=== PATIENT | female | born 1990 ===

== ENCOUNTER 2024-09-30 13:47 | Outpatient (CLI) | payer OTHER | END 2024-09-30 13:48 | disposition home or self-care (01) | LOC: PRENATAL 13:47 | PROVIDERS: ATTEND Obstetrics & Gynecology Maternal & Fetal Medicine | DX: O44.00 Complete placenta previa NOS or without hemorrhage, unspecified trimester (principal); Z3A.24 24 weeks gestation of pregnancy ==

== ENCOUNTER 2024-12-16 11:01 | Outpatient (CLI) | payer OTHER | END 2024-12-16 11:04 | disposition home or self-care (01) | LOC: PRENATAL 11:01 | PROVIDERS: ATTEND Obstetrics & Gynecology Maternal & Fetal Medicine | DX: O26.849 Uterine size-date discrepancy, unspecified trimester (principal); O36.8199 Decreased fetal movements, unspecified trimester, other fetus; Z3A.36 36 weeks gestation of pregnancy ==

== ENCOUNTER 2025-01-18 08:49 | Inpatient (IN) | payer OTHER ==
[~2025-01-18] VITALS: Ht 154.9 cm; Wt 3.2 kg
[2025-01-18 10:34] VITALS: BP 108/70
[2025-01-18] MEDS ORDERED: OXYTOCIN 20 UNITS/500ML RL PIGGYBAG IV SCH (11:15)
[2025-01-18 11:34] LABS: BASO % 0.2 % (0.1-1.2); EOS # 0.21 (0.04-0.54); EOS % 2.1 % (0.7-7.0); LYMPH # 2.38 (1.18-3.74); LYMPH % 23.4 % (19.3-53.1); MEAN PLATELET VOLUME 10.70 fl (9.4-12.4); MONO # 1.04 (0.24-0.82); MONO % 10.2 % (4.7-12.5); NEUT # 6.45 (1.56-6.13); NEUT % 63.5 % (34.0-71.1); RED CELL DISTRIBUTION WIDTH 14.7 % (11.6-14.4)
[2025-01-18 11:37] LABS: URINE APPEARANCE Clear; URINE BACTERIA 1303.1 uL (0.0-1933); URINE BILIRRUBIN Negative (NEGATIVE); URINE BLOOD Moderate; URINE COLOR Yellow; URINE EPITHELIAL CELLS 32.6 uL (0.0-38.8); URINE GLUCOSE Negative (NEGATIVE); URINE KETONE Negative (NEGATIVE); URINE LEUKOCYTE Moderate; URINE NITRATE Negative; URINE PROTEIN Negative (NEGATIVE); URINE UROBILINOGEN 0.2 E.U./dl; URINE WBC 33.5 uL (0.0-23.2)
[2025-01-18 12:05] LABS: INR 0.95
[2025-01-18 12:15] LABS: URINE CAST 0.00 uL (0.0-1.40); URINE RBC 1.0 uL (0.0-20.8)
[2025-01-18] MEDS ORDERED: PRENATA CHEWAB1 EACH PO (13:15)
[2025-01-18 15:36] VITALS: BP 104/71
[2025-01-18] MEDS ORDERED: ERYTHROMYCIN BASE OPHT 1GM EACH TUBE OP ONE ×2 (17:40→21:57)
[2025-01-18] MEDS ORDERED: LIDOCAINE HCL 1% 10ML VIAL ONE (17:41)
[2025-01-18] MEDS ORDERED: CHLORHEXIDINE GLUCONATE 120 ML BOTTLE TOP ONE ×3 (17:41→23:45)
[2025-01-18] MEDS ORDERED: OXYTOCIN 20 UNITS/1000ML RL PIGGYBAG IV ONE (17:55)
[2025-01-18] MEDS ORDERED: MORPHINE SULFATE 4 MG/ML VIAL IV STA (19:37)
[2025-01-18 20:09] VITALS: BP 108/68
[2025-01-18] MEDS ORDERED: OXYTOCIN 10 UNITS/ML VIAL ONE (21:57)
[2025-01-18] MEDS ORDERED: CEFAZOLIN SODIUM 1,000 MG VIAL ONE (22:40)
[2025-01-18] MEDS ORDERED: KETOROLAC TROMETHAMINE 60 MG VIAL IM STA (23:35)
[2025-01-18] MEDS ORDERED: MORPHINE SULFATE 4 MG/ML CARTRIDGE IV PRN (23:45)
[2025-01-18] MEDS ORDERED: OXYTOCIN 1,000 ML IV SCH (23:45)
[2025-01-18] MEDS ORDERED: RINGERS SOLUTION,LACTATED 1,000 ML IV SCH (23:45)
[2025-01-19] MEDS ORDERED: OXYTOCIN 10 UNITS/ML VIAL ONE (00:15)
[2025-01-19] MEDS ORDERED: MORPHINE SULFATE 4 MG/ML VIAL IV ONE ×2 (00:15→00:45)
[2025-01-19 02:25] VITALS: BP 114/70
[2025-01-19 02:33] LABS: BASO % 0.1 % (0.1-1.2); EOS # 0.00 (0.04-0.54); EOS % 0.0 % (0.7-7.0); LYMPH # 1.36 (1.18-3.74); LYMPH % 7.3 % (19.3-53.1); MEAN PLATELET VOLUME 10.60 fl (9.4-12.4); MONO # 1.40 (0.24-0.82); MONO % 7.5 % (4.7-12.5); NEUT # 15.82 (1.56-6.13); NEUT % 84.5 % (34.0-71.1); RED CELL DISTRIBUTION WIDTH 14.8 % (11.6-14.4)
[2025-01-19 08:49] VITALS: BP 93/53
[2025-01-19] MEDS ORDERED: ACETAMINOPHEN 325 MG TABLET PO PRN (09:00)
[2025-01-19] MEDS ORDERED: OxyCODONE HCL 5 MG TABLET (ROXICODONE) PO PRN (09:00)
[2025-01-19 17:26] VITALS: BP 103/70
[2025-01-19 23:59] VITALS: BP 90/70
[2025-01-20 08:00] VITALS: BP 100/65
[2025-01-20 12:00] VITALS: BP 98/68
[2025-01-20 16:43] VITALS: BP 105/71
== END 2025-01-20 18:51 | disposition home or self-care (01) | DRG 785 ==
LOC: LDR 08:49 → OB/GYN 01-19 00:11
PROVIDERS: ADMIT Obstetrics & Gynecology; ATTEND Obstetrics & Gynecology
PROC: 0UB70ZZ Excision of Bilateral Fallopian Tubes, Open Approach (ICD-10-PCS; 2025-01-18)
PROC: 4A1HXCZ Monitoring of Products of Conception, Cardiac Rate, External Approach (ICD-10-PCS; 2025-01-18)
PROC: 10D00Z1 Extraction of Products of Conception, Low, Open Approach (ICD-10-PCS; principal; 2025-01-18 21:30)
DX: O82 Encounter for cesarean delivery without indication (principal); O62.0 Primary inadequate contractions; Z3A.39 39 weeks gestation of pregnancy; Z30.2 Encounter for sterilization; Z37.0 Single live birth